=== PATIENT | male | born 1990 | race Caucasian/White ===

== ENCOUNTER 2016-07-10 11:14 | Inpatient (IN) | payer OTHER ==
[~2016-07-10] VITALS: Ht 177.8 cm; Wt 87.5 kg
--- NOTE | 2016-07-10 11:21 | NUR ---
PT BIBA S/P BEING FOUND OUTSIDE GARDENING NAKED. PT ARRIVES TO ED ALERT, STATES THAT HE SMOKED A BLUNT THIS AM, AND HAD SOME ALCOHOL LAST NIGHT. STATES THAT HE WAS OUTSIDE RECYCLING FOR THE EARTH. PT NOT MAKING ANY SENSE WITH ANSWERS. STATES WE ARE ALL INTELLECUAL BEINGS AND PART OF THE EARTH. PT COOPERATIVE WITH EVERYTHING. PAPERED BY .
[2016-07-10 11:55] LABS: ABSOLUTE BASOPHIL COUNT 0 /CUMM (0.0-0.2); ABSOLUTE EOSINOPHIL COUNT 0.1 /CUMM (0.0-0.7); ABSOLUTE GRANULOCYTE CT 5.7 /CUMM (1.4-6.5); ABSOLUTE LYMPH COUNT 1.6 /CUMM (1.2-3.4); ABSOLUTE MONOCYTE COUNT 0.7 /CUMM (0.10-0.60); BASOPHIL % 0.6 % (0.0-2.0); EOSINOPHIL % 1.1 % (0-5); HEMATOCRIT 45.7 % (42-52); MEAN CORPUSCULAR HGB 30.8 PG (27.0-31.0); MEAN CORPUSCULAR HGB CONC 34.5 G/DL (33.0-37.0); MEAN CORPUSCULAR VOLUME 89.3 FL (80.0-94.0); MEAN PLATELET VOLUME 7.6 FL (7.4-10.4); PLATELET COUNT 263 /CUMM (130-400); RBC DISTRIBUTION WIDTH 12.8 % (11.5-14.5); RED BLOOD CELL CT 5.11 /CUMM (4.70-6.10); WHITE BLOOD CELL COUNT 8.1 /CUMM (4.8-10.8)
--- NOTE | 2016-07-10 12:27 | NUR ---
FAMILY AT BEDSIDE.
--- NOTE | 2016-07-10 12:29 | ED PSYCHIATRIC COMPLAINT ---
History of Present Illness General Chief Complaint: ETOH/Drug Related Complaint Stated Complaint: BIBA FOUND OUTSIDE NAKED Source: patient, old records, EMS, police Exam Limitations: clinical impression of psychosis Vital Signs & Intake/Output Vital Signs & Intake/Output Vital Signs Date Time Temp Pulse Resp B/P Pulse O2 O2 Flow FiO2 Ox Delivery Rate 07/10 1351 98.0 90 22 184/81 96 Room Air 07/10 1115 99.0 110 22 143/100 99 Room Air Allergies Coded Allergies: UNOBTAINABLE (07/10/16) Reconcile Medications Unable to Obtain Home Medication History Triage Note: PT BIBA S/P BEING FOUND OUTSIDE GARDENING NAKED. PT ARRIVES TO ED ALERT, STATES THAT HE SMOKED A BLUNT THIS AM, AND HAD SOME ALCOHOL LAST NIGHT. STATES THAT HE WAS OUTSIDE RECYCLING FOR THE EARTH. PT NOT MAKING ANY SENSE WITH ANSWERS. STATES WE ARE ALL INTELLECUAL BEINGS AND PART OF THE EARTH. PT COOPERATIVE WITH EVERYTHING. PAPERED BY PD. Triage Nurses Notes Reviewed? yes HPI: Patient presents for evaluation of public nudity. Patient was brought to the emergency department on a police request for evaluation. Patient himself is unable to provide substantial history and I suspect he is a schizophrenic. He states that he had a moment of clarity and that he is one with the Bible. He states that his Shahkras have aligned. He has no specific complaints at this point. Past History Travel History Traveled to [place] past 21 day No Medical History Any Pertinent Medical History? see below for history Surgical History Surgical History: non-contributory Psychosocial History What is your primary language Arabic Tobacco Use: Cognitive Impairment Family History Hx Contributory? No Review of Systems Review of Systems Constitutional: Reports: no symptoms. EENTM: Reports: no symptoms. Respiratory: Reports: no symptoms. Cardiovascular: Reports: no symptoms. GI: Reports: no symptoms. Genitourinary: Reports: no symptoms. Musculoskeletal: Reports: no symptoms. Skin: Reports: no symptoms. Neurological/Psychological: Reports: see HPI. Hematologic/Endocrine: Reports: no symptoms. Immunologic/Allergic: Reports: no symptoms. All Other Systems: Reviewed and Negative Physical Exam Physical Exam General Appearance: see below Neurological/Psychiatric: see below Comments: General: Alert, calm, cooperative Head: Normocephalic, atraumatic Eyes: Normal inspection, no nystagmus, EOMI Ears: Normal inspection Nose: Normal inspection Throat: Moist mucosa Neck: Supple, no goiter Heart: Regular rate and rhythm, no murmurs rubs or gallops Lungs: Clear to auscultation bilaterally with good air entry Abdomen: Soft nontender nondistended, normal bowel sounds Chest: Nontender Extremities: Normal range of motion grossly, no tremors present, no cyanosis clubbing or edema of the upper extremities Neurologic: cranial nerves II through XII grossly intact, speech clear, gait normal Psychiatric: No apparent delusions or hallucinations, no pressured speech or thought blocking SAD PERSONS Done? deferred to crisis Progress Differential Diagnosis: schizophrenia Plan of Care: Orders Procedure Date/time Status Admit to inpatient psych 07/10 1642 Active ED CRISIS PSYCH CONSULT 07/10 1229 Active URINE DRUG SCREEN FOR ER ONLY 07/10 113 Complete URINALYSIS 07/10 113 Complete ETHANOL 07/10 113 Complete COMPREHENSIVE METABOLIC PANEL 07/10 113 Complete CBC WITHOUT DIFFERENTIAL 07/10 113 Complete Laboratory Tests 07/10/16 1432: Urine Opiates Screen < 100.00, Methadone Screen < 40, Barbiturate Screen < 60, Ur Phencyclidine Scrn < 6.00, Amphetamines Screen < 100, U Benzodiazepines Scrn < 85, Urine Cocaine Screen < 50, Urine Cannabis Screen > 80.00 H, Urinalysis LIGHT H, Urine Color YEL, Urine Clarity CLEAR, Urine pH 7.0, Ur Specific [place] 1.020, Urine Protein 30 H, Urine Ketones TRACE H, Urine Nitrite NEG, Urine Bilirubin NEG, Urine Urobilinogen 0.2, Ur Leukocyte Esterase NEG, Ur Microscopic SEDIMENT EXAMINED, Urine WBC 1-3 H, Urine Bacteria MOD H, Urine Hemoglobin NEG, Urine Glucose NEG 07/10/16 1115: Anion Gap 14, Estimated GFR > 60, BUN/Creatinine Ratio 13.8, Glucose 100 H, Calcium 10.1, Total Bilirubin 0.6, AST 32, ALT 33, Alkaline Phosphatase 61, Total Protein 7.4, Albumin 5.0, Globulin 2.4, Albumin/Globulin Ratio 2.1, CBC w Diff NO MAN DIFF REQ, RBC 5.11, MCV 89.3, MCH 30.8, RDW 12.8, MPV 7.6, Gran % 70.0, Lymphocytes % 19.6 L, Monocytes % 8.7, Eosinophils % 1.1, Basophils % 0.6 , Absolute Granulocytes 5.7, Absolute Lymphocytes 1.6, Absolute Monocytes 0.7 H , Absolute Eosinophils 0.1, Absolute Basophils 0, PUBS MCHC 34.5, Serum Alcohol < 10.0 Comments: Patient's clinical presentation is consistent with grandiosity secondary to schizophrenia. Departure Departure Disposition: STILL A PATIENT Condition: Stable Clinical Impression Primary Impression: Schizophrenia, unspecified Qualifiers: Schizophrenia type: unspecified Qualified Code: F20.9 - Schizophrenia, unspecified Referrals: RADHA MARY MD Departure Forms: Customer Survey General Discharge Information Prescriptions: Current Visit Scripts Unable to Obtain Home Medication History Psych Admission Note Psychiatric Admission: I have seen and evaluated EARL ESCOBAR JR. I have also reviewed all the pertinent lab results and diagnostic results. EARL ESCOBAR JR will be admitted to our inpatient Psychiatric unit for treatment and care.
--- NOTE | 2016-07-10 14:25 | NUR ---
Crisis wating on lab work.
--- NOTE | 2016-07-10 14:32 | ED PSY CRISIS COLLATERAL NOTE ---
Collateral Note Collateral Note Family/Inform/V[place]te Contacts: Elizabeth (mom) face to face: Mom reported "it has been hell for the past 3 weeks." She reports the pt has been delusional and having hallucinations (latter-day ideations). She said pt refuses to seek treatment and get help. Pt has no hx of treatment for MH/SA. She said pt smokes a lot of cannabis and suspect cocaine use per the sister's report. Pt talks about the matrix and how god will provide for them. Pt lives at home with his parents, 1 sister Spring Ahuja ( age 33) lives on her own and is a big support of her brother. Mom said the pt talked about suicide but had no plan. The pt's father just recently went back to work at a nuclear plant but does not think the job will last. The family has financial issues/stressors. Mom reported the pt had a big break up with a girl a year ago. Pt graduated [employer] school and has no motivation to get a job. Mom reports a hx of mental illness of bipolar and schizophrenia on the maternal side. Mom does not feel the pt is safe and does not feel safe taking him home- she would like him to be admitted for stabilization and safety. Mom is aware Crisis is waiting on the pt to be medically cleared for evaluation.
--- NOTE | 2016-07-10 15:35 | NUR ---
SISTER AT NURSING STATION STATING "I WANT TO MAKE SURE HE'S NOT ON DRUGS. HE SAYS HE ISN'T." INFORMED THAT RESULTS OF DRUG TEST ARE CONFIDENTIAL.
--- NOTE | 2016-07-10 15:36 | ED PSYCH CRISIS CONSULTATION ---
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 Pt was outside gardening naked, picking weeds, talking about the matrix and could not answer basic demographic questions at the time. Pt presents as nonsensical and could not give a coherent story why he was naked. He stated "it was meant to be and he needed to give back to the earth." He denies SI/HI at present but notes a hx of having thoughts in middle school but could not articulate why. Pt thoughts are disorganized and reported he "felt like he was home being here at the hospital". Pt is nonsensical, paranoid toward people outside of the hospital, delusional and reports AVH at present. He said he thinks music speaks to him directly and he sees things others can't. Pt UTOX was positive for cannabis and urinalysis positive for UTI. He has no hx of MH/SA treatment and is on no medications. He stated he did not need to be medicated. Pt is currently unemployed and denies graduating high school. He stated he did not need to finish high school as God will provide for him. " I am busy just feeling alive." Per pt , he had a grand mal seizure in the 5th grade due to " being too fast." Pt reports hx of using cannabis daily, using cocaine at age 21 ( last use 3 mos ago) and drinking alcohol occasionally. He has no hx of IP stays with . Pt is agreeable to inpatient admission. Elizabeth (mom) face to face: Mom reported "it has been hell for the past 3 weeks." She reports the pt has been delusional and having hallucinations (jain ideations). She said pt refuses to seek treatment and get help. Pt has no hx of treatment for MH/SA. She said pt smokes a lot of cannabis and suspect cocaine use per the sister's report. Pt talks about the matrix and how god will provide for them. Pt lives at home with his parents, 1 sister Spring Ahuja ( age 33) lives on her own and is a big support of her brother. Mom said the pt talked about suicide but had no plan. The pt's father just recently went back to work at a nuclear plant but does not think the job will last. The family has financial issues/stressors. Mom reported the pt had a big break up with a girl a year ago. Pt graduated [employer] school and has no motivation to get a job. Mom reports a hx of mental illness of bipolar and schizophrenia on the maternal side. Mom does not feel the pt is safe and does not feel safe taking him home- she would like him to be admitted for stabilization and safety. Mom is aware Crisis is waiting on the pt to be medically cleared for evaluation Patient's Address: [address] [place] [address] Other Phone Number: Who Do You Live With? Mother Family/Informants Interviewed: Elizabeth- mother Allergies - Coded Allergies: UNOBTAINABLE (07/10/16) Current Medications - Unable to Obtain Home Medication History Laboratory Results: Laboratory Tests 07/10/16 1432: Urine Opiates Screen < 100.00, Methadone Screen < 40, Barbiturate Screen < 60, Ur Phencyclidine Scrn < 6.00, Amphetamines Screen < 100, U Benzodiazepines Scrn < 85, Urine Cocaine Screen < 50, Urine Cannabis Screen > 80.00 H, Urinalysis LIGHT H, Urine Color YEL, Urine Clarity CLEAR, Urine pH 7.0, Ur Specific [place] 1.020, Urine Protein 30 H, Urine Ketones TRACE H, Urine Nitrite NEG, Urine Bilirubin NEG, Urine Urobilinogen 0.2, Ur Leukocyte Esterase NEG, Ur Microscopic SEDIMENT EXAMINED, Urine WBC 1-3 H, Urine Bacteria MOD H, Urine Hemoglobin NEG, Urine Glucose NEG 07/10/16 1115: Anion Gap 14, Estimated GFR > 60, BUN/Creatinine Ratio 13.8, Glucose 100 H, Calcium 10.1, Total Bilirubin 0.6, AST 32, ALT 33, Alkaline Phosphatase 61, Total Protein 7.4, Albumin 5.0, Globulin 2.4, Albumin/Globulin Ratio 2.1, CBC w Diff NO MAN DIFF REQ, RBC 5.11, MCV 89.3, MCH 30.8, RDW 12.8, MPV 7.6, Gran % 70.0, Lymphocytes % 19.6 L, Monocytes % 8.7, Eosinophils % 1.1, Basophils % 0.6 , Absolute Granulocytes 5.7, Absolute Lymphocytes 1.6, Absolute Monocytes 0.7 H , Absolute Eosinophils 0.1, Absolute Basophils 0, PUBS MCHC 34.5, Serum Alcohol < 10.0 Past History Past Surgical History Surgical History: non-contributory Psychosocial History Strengths/Capabilities: Pt is agreeable to tx for mood stabilization and safety. Physical Limitations (Interventions): none Psychiatric Treatment History Psych Treatment Psychiatric Treatment No Inpatient Treatment No Outpatient Treatment No Diagnosis by History: no hx Substance Use/Abuse History Drug Use/Abuse Substances Used/Abused Yes Substance Used/Abused Marijuana First Use 15 yo Last Used last night How much used/taken 1 blunt with a friend How often daily For how long can't recall Route of use smoke Substance Abuse Treatment Substance Abuse Treatment Past Substance Abuse [place] No Inpatient Treatment No Outpatient Treatment No Comments: Pt discloses smoking cannabis regularly and trying cocaine in the past. Current Mental Status Mental Status Orientation: Confused Affect: Labile Speech: Hyper-verbal Neuro-vegetative: WNL Appearance Appearance- Dress/Hygiene: Pt is dressed in [facility] gown, hygiene fair. Behaviors Thought Process: Disorganized, Irrational, Tangential Thought Content: Auditory Hallucinations, Delusions, Paranoid, Presybeterian, Visual Hallucinations Memory: Impaired Insight: Poor SI/HI Risk Assessment Past Suicidal Ideation/Attempts Yes Current Suicidal Ideation/Att No Past Homicidal Ideation/Att: No Current Homicidal Ideation/Attempts No Degree of Intent: Thoughts/No Intent Gravely Disabled: Lack of Insight Risk Factors: age (under 24/over 65), substance abuse, poor impulse control, male Lethality Ratin PTSD Checklist PTSD Done? pt unable to participate ED Management Sitter: Yes Restraints: No DSM5/PS Stressors/Medical Prob Diagnosis' (DSM 5, Stressors, Medical): F29 Unspecified schizophrenia spectrum and other psychotic d/o F12.20 cannabis use d/o, severe medical: per pt, hx of seizure psychosocial: unemployed, education, financial issues, problems with primary supports Current GAF: 25 Departure Disposition Psych Medical Clearance Date: 07/10/16 Medically Cleared at: 1515 Time Started: 1515 Time Ended: 1615 Psychiatrist Consulted: Boy FARLEY,Jamarcus Date Disposition Established: 07/10/16 Time Disposition Established: 161 Plan for Disposition - Modality: Inpatient Psychiatry Facility: [facility] Rationale for Disposition: Pt presents with AVH and paranoid delusions. He cannot give coherent story of why he was outside nude. Pt's statements are nonsensical and he cannot give basic demographic information. Pt is agreeable to voluntary admission for mood stabilzation and safety. Type of IP Admission: Voluntary Referrals PATIENT HAS NO PRIMARY CARE DR (PCP/Family)
--- NOTE | 2016-07-10 16:24 | NUR ---
PT RESTING COMFORTABLY. OFFERED NO COMPLAINTS. DINNER ORDERED.
--- NOTE | 2016-07-10 16:43 | IP CRISIS DIAG ASSESS PSYCH ---
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 Pt was outside gardening naked, picking weeds, talking about the matrix and could not answer basic demographic questions at the time. Pt presents as nonsensical and could not give a coherent story why he was naked. He stated "it was meant to be and he needed to give back to the earth." He denies SI/HI at present but notes a hx of having thoughts in middle school but could not articulate why. Pt thoughts are disorganized and reported he "felt like he was home being here at the hospital". Pt is nonsensical, paranoid toward people outside of the hospital, delusional and reports AVH at present. He said he thinks music speaks to him directly and he sees things others can't. Pt UTOX was positive for cannabis and urinalysis positive for UTI. He has no hx of MH/SA treatment and is on no medications. He stated he did not need to be medicated. Pt is currently unemployed and denies graduating high school. He stated he did not need to finish high school as God will provide for him. " I am busy just feeling alive." Per pt , he had a grand mal seizure in the 5th grade due to " being too fast." Pt reports hx of using cannabis daily, using cocaine at age 21 ( last use 3 mos ago) and drinking alcohol occasionally. He has no hx of IP stays with . Pt is agreeable to inpatient admission. Elizabeth (mom) face to face: Mom reported "it has been hell for the past 3 weeks." She reports the pt has been delusional and having hallucinations (confucianism ideations). She said pt refuses to seek treatment and get help. Pt has no hx of treatment for MH/SA. She said pt smokes a lot of cannabis and suspect cocaine use per the sister's report. Pt talks about the matrix and how god will provide for them. Pt lives at home with his parents, 1 sister Spring Ahuja ( age 33) lives on her own and is a big support of her brother. Mom said the pt talked about suicide but had no plan. The pt's father just recently went back to work at a nuclear plant but does not think the job will last. The family has financial issues/stressors. Mom reported the pt had a big break up with a girl a year ago. Pt graduated [employer] school and has no motivation to get a job. Mom reports a hx of mental illness of bipolar and schizophrenia on the maternal side. Mom does not feel the pt is safe and does not feel safe taking him home- she would like him to be admitted for stabilization and safety. Mom is aware Crisis is waiting on the pt to be medically cleared for evaluation. Spring ( sister face to face): Pt has been very manic the past few weeks and agrees with the inpatient admission. Spring is hoping this was only drug related. Patient's Address: [address] [place] [address] Other Phone Number: Who Do You Live With? Mother Feel Safe Where You Live? No Marital Status: single Do You Have Children? No Primary Language? Prydeinig Language(s) Spoken At Home: [place] Family/Informants Interviewed: Elizabeth- mother Allergies - Coded Allergies: UNOBTAINABLE (07/10/16) Current Medications - Unable to Obtain Home Medication History Past History Abuse/Trauma History Trauma History/Current Trauma: Denies Legal History Current Legal Status: none Have you ever been arrested? No Number of Arrests: [address] Dates: Denies Psychosocial History Strengths/Capabilities: Pt is agreeable to tx for mood stabilization and safety. Physical Limitations (Interventions): none Psychiatric Treatment History Psych Treatment Psychiatric Treatment No Inpatient Treatment No Outpatient Treatment No Diagnosis by History: no hx Risk Factors: age (under 24/over 65), substance abuse, poor impulse control, male Substance Use/Abuse History Drug Use/Abuse minimum 12mo Hx Substances Used/Abused Yes Substance Used/Abused Marijuana First Use 15 yo Last Used last night How much used/taken 1 blunt with a friend How often daily For how long can't recall Route of use smoke Substance Abuse Treatment Substance Abuse Treatment Past Substance Abuse TX No Inpatient Treatment No Outpatient Treatment No Sexual History Sexually Active No # of partners 0 Sexual Orientation Heterosexual Use of Protection No Sexual Concerns: No Education History Highest Level of Education: did not complete HS, Pt completed [employer] school Preferred Learning Style: All of the above Current Mental Status Mental Status Orientation: Confused Affect: Labile, Manic Speech: Hyper-verbal Neuro-vegetative: WNL Appearance Appearance- Dress/Hygiene: Pt is dressed in [facility] gown, hygiene fair. Behaviors Thought Process: Disorganized, Irrational, Tangential Thought Content: Auditory Hallucinations, Delusions, Paranoid, Judaism, Visual Hallucinations Memory: Impaired Insight: Poor SI/HI Risk Assessment - Minimum 6mo History- Past Suicidal Ideation/Attempts Yes Current Suicidal Ideation/Att No Past Homicidal Ideation/Att: No Current Homicidal Ideation/Attempts No Degree of Intent: Thoughts/No Intent Gravely Disabled: Lack of Insight Risk Factors: age (under 24/over 65), substance abuse, poor impulse control, male Lethality Ratin Needs/Init TX Plan/Goals: Mood stabilization and safety, group and indiviudal therapy, psychoeducation, family meeting, medication evaluation and coping skills. AUDIT-C Questionnaire: AUDIT-C Questionnaire: Response Value ETOH use in the past year 2-4 times/week 3 # drinks typical/day 1 or 2 0 6 or > drinks per occasion Monthly 2 Total 5 DSM5/PS Stressors/Medical Prob Diagnosis' (DSM 5, Stressors, Medical): F29 Unspecified schizophrenia spectrum and other psychotic d/o F12.20 cannabis use d/o, severe medical: per pt, hx of seizure psychosocial: unemployed, education, financial issues, problems with primary supports Current GAF: 25
--- NOTE | 2016-07-10 17:22 | NUR ---
PT MEDICATED WITH ZYPREXA PER EMAR. PT CALM, PLEASANT, INTIALLY REFUSED STATING "THAT'S GONNA MAKE ME WORSE, ANTIBIOTICS AND ALL THAT, THEY POISON YOUR MIND. I'D RATHER NOT TAKE IT." PT THEN STATES "UNLESS I NEED IT." INFORMED THE DOCTOR WOULD LIKE HIM TO TAKE IT AND PT COMPLIED.
--- NOTE | 2016-07-10 17:26 | NUR ---
REPORT GIVEN TO ED, WILL BE TRANSFERED TO [facility].
--- NOTE | 2016-07-10 18:45 | NUR ---
Admitted from ED on voluntary for unspecified schizophrenia, +ah/?vh. was found at home in the yard engaging in naked gardening. States is at one with the with the world and spirit of the earth. When asked if he had any special abilities he stated he can see the future and what will happen. Verbalized some paronoid thinking especially as it relates to meds. Denied any past or present thoughts of suicidal thinking. denies being on any medications or having any medical issues.
[2016-07-10 19:22] VITALS: BP 153/76
[2016-07-10 20:14] VITALS: BP 140/84
--- NOTE | 2016-07-10 21:41 | NUR ---
PATIENT ISOLATIVE IN ROOM ALL SHIFT; DID NOT ATTEND GROUPS; COMPLIANT WITH MEDICATIONS; CALM, COOPERATIVE WITH STAFF; CURRENT BLOOD PRESSURE 128/55, PULSE 50.
--- NOTE | 2016-07-10 21:47 | NUR ---
PT HAS BEEN ISOLATIVE IN ROOM FOR MOST OF SHIFT. PT CAME DOWN AFTER DINNER AND WENT TO SLEEP AFTER THE ADMISSION. PT IS EASILY AWAKEN FOR VITALS AND MEDS. PT DID NOT ATTEND WRAP UP. PT DENIES SI THOUGHTS.
[2016-07-10 21:48] VITALS: BP 128/55
--- NOTE | 2016-07-11 05:55 | NUR ---
PATIENT SLEPT ALL NIGHT.
[2016-07-11 08:08] VITALS: BP 149/86
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
[2016-07-11 12:24] VITALS: BP 139/73
--- NOTE | 2016-07-11 14:14 | NUR ---
PT HAS BEEN VISIBLE IN THE MILIEU THROUGHOUT THE DAY. HIS GOAL WAS TO BE HUMBLE, AND ADJUST TO THE MILIEU. IN THE MILIEU PT HAS BEEN GOING TO GROUPS, AND INTERACTING WITH PEERS. HE SEEMS TO BE ADJUSTING FINE ON THE UNIT, AND DENIES THOUGHTS OF HURTING HIMSELF WHEN ASKED.
--- NOTE | 2016-07-11 14:43 | History & Physical ---
General Information and HPI History of Present Illness: This young male is admitted for the first time to the hospital because he was brought by police for strange and abnormal behavior. he is not sure how the whole thing happened but claims it was meant to be like that. He denies any specific physical problems and claims he is in good health generally. His past history is essentially negative for any ongoing medical illnesses or any major medical problems in the past he works in [employer] business and admits to smoking marijuana couple of times a day and claims he is trying to cut it down. Rarely he smokes any cigarettes on the weekend or so. He denies any other illegal drug abuse. He claims both parents are alive and his mother has some medical problems due to smoking. His single unmarried and no children. He has one sister who is in good health. 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 Home Review of Systems Review of Systems Constitutional: Denies: no symptoms. EENTM: Denies: no symptoms. Cardiovascular: Denies: no symptoms. Respiratory: Denies: no symptoms. GI: Denies: no symptoms. Genitourinary: Denies: no symptoms. Musculoskeletal: Denies: no symptoms. Skin: Denies: no symptoms. Neurological/Psychological: Reports: see HPI, confusion. Hematologic/Endocrine: Denies: no symptoms. Immunologic/Allergic: Denies: no symptoms. All Other Systems: Reviewed and Negative Exam & Diagnostic Data Last 24 Hrs of Vital Signs/I&O Vital Signs Date Time Temp Pulse Resp B/P Pulse O2 O2 Flow FiO2 Ox Delivery Rate 07/11 1224 85 139/73 07/11 0808 96.8 73 149/86 07/10 2148 50 18 128/55 07/10 2013 62 140/84 07/10 1922 98.0 84 153/76 07/10 1725 97.8 89 20 168/88 97 Room Air Intake & Output 07/11 1600 07/11 0800 07/11 0000 Intake Total Output Total Balance Patient 193 lb Weight Physical Exam General Appearance Alert, Oriented X3, Cooperative, No Acute Distress Skin No Rashes, No Breakdown, No Significant Lesion HEENT Atraumatic, PERRLA, EOMI, Mucous Membr. moist/pink Neck Supple, No JVD, No thryomegaly, +2 Carotid Pulse wo Bruit Lymphatic Cervical nl Cardiovascular Regular Rate, Normal S1, Normal S2, No Murmurs, Gallops, Rubs Lungs Clear to Auscultation, Normal Air Movement Abdomen Soft, No Tenderness, No Hepatospenomegaly, No Masses Neurological Exam Findings: Normal Gait, Normal Speech, Strength at 5/5 X4 Ext, Normal Tone, Sensation Intact, Cranial Nerves 3-12 NL Cranial Nerves II through XII: Within normal limits and intact Extremities No Clubbing, No Cyanosis, No Edema, No Tenderness/Swelling Assessment/Plan Assessment: This young male is admitted for bizarre and psychotic behavior and was brought in by police. There is no clear documented previous history of any psychiatric illness and no outpatient treatment. From a from medical standpoint he seems stable without any acute medical problem. His lab work including a CBC electrolytes liver functions thyroid functions are all normal and his urine toxicology is only positive for marijuana that he admits to using. There is no need for any medical workup or treatment at this time and he will be seen as needed. His initial elevated blood pressure was just from anxiety and agitation and it has come back to normal and does not require any treatment. As Ranked By This Provider Problem List: 1. Schizophrenia, unspecified Qualifiers Schizophrenia type: unspecified Qualified Code: F20.9 - Schizophrenia, unspecified Miscellaneous Miscellaneous Documentation Attending Case Discussed With: ARSLAN FARLEY,SATYA Lopez Primary Care Physician: PATIENT HAS NO PRIMARY CARE DR Patient sees these Specialists none Level of Patient Care: RICKIE Farrell MD Review Statement Attending Statement Attending MD Statement: examined this patient, reviewed EMR data (avail), discussed with nursing Attending Assessment/Plan: This young male is admitted for schizophrenia probably new onset. He is fairly stable from medical standpoint without any acute medical problems. He does not require any medical treatment or workup and will be seen only as needed.
[2016-07-11 15:39] VITALS: BP 161/74
--- NOTE | 2016-07-11 17:21 | NUR ---
PT'S BOSS - TENZIN ELLIS, APPROACHED DESK AFTER VISIT WITH EAR[facility]. REPORTED THAT PT STILL IS CONFUSED AND IS NOT ACTING LIKE HIMSELF. IS ALSO A FRIEND OF PT AND STATED THAT PT CONFIDES IN HIM. LEFT PHONE NUMBER [phone] IF BASILIO OR WOULD LIKE INPUT
[2016-07-11 19:32] VITALS: BP 178/91
--- NOTE | 2016-07-11 21:24 | NUR ---
PT IS CALM, COOPERATIVE WITH STAFF AND PEERS, AND COMPLIANT WITH UNIT RULES. PT IS OFTEN IN MILIEU, INTERACTING WELL WITH STAFF AND PEERS. MOOD IS STABLE, AFFECT APPEARS EUTHYMIC TO FULL RANGE, COMMUNICATION IS ORGANIZED AND APPEARS NORMAL IN ALL RESPECTS, AND APPETITE IS NORMAL. PT DENIES SI AT THIS TIME.
--- NOTE | 2016-07-12 07:23 | NUR ---
PT APPEARED TO SLEEP WELL.
[2016-07-12 08:04] VITALS: BP 172/80
[2016-07-12 12:34] VITALS: BP 172/84
--- NOTE | 2016-07-12 13:40 | NUR ---
PT IS COMPLIANT AND COOPERATIVE. MOOD IS STABLE WITH A FULL RANGE OF AFFECT- PT IS BRIGHT AT TIMES. PT DENIES SI AT THIS TIME, NO COMPLAINTS OFFERED. PT IS PRESENT ON THE UNIT AND INTERACTING WELL WITH PEERS AND STAFF. NO ACTIVE PSYCHOSIS NOTED. PT IS ATTENDING GROUPS. VITALS ARE STABLE, APPETITE IS GOOD.
--- NOTE | 2016-07-12 15:56 | CP SOUTH PROGRESS NOTE PSYCH ---
See Addendum Psych (Inpt) Progress Note Progress Note Include the following elements, when applicable: Involvement in the active treatment of the patient with behavioral observations of the patient and the patient's response to the treatment. Review of the ongoing treatment process in the context of the treatment plan. Indication of how multi-disciplinary staff members are carrying out the treatment plan. Plans for future interventions and recommendations for revision of the treatment plan. Liaison with other physicians/providers. Progress Note: [I discussed this patient's progress to date, current mental status, treatment process in the context of the treatment plan, and discharge planning with staff/ team in the daily morning inpatient team meeting. I also met with the patient myself in individual session.] S: "Can I go home tomorrow?" O: Current Medications Sig/Patricia Start time Last Medication Dose Route Stop Time Status Admin Acetaminophen 650 MG Q6P PRN 07/11 1645 AC PO Gabapentin 300 MG Q8P PRN 07/11 1645 AC PO Olanzapine 10 MG 0 07/13 2200 AC PO Olanzapine 5 MG 0800 07/13 0800 AC PO Olanzapine 5 MG 0 07/12 2200 AC PO 07/12 2201 Olanzapine 5 MG 0800,1400,2200 07/10 2200 DC 07/12 PO 1303 Olanzapine 2.5 MG Q4P PRN 07/10 1800 AC PO Vital Signs Date Time Temp Pulse Resp B/P Pulse O2 O2 Flow FiO2 Ox Delivery Rate 07/12 1234 80 172/84 07/12 0804 97.9 87 172/80 07/11 1932 98.5 71 178/91 A: Chart, progress notes, labs, VS and medication list were reviewed. BP remains hypertensive. HR within normal limits. Patient is asymptomatic. Will continue to monitor. Commercial Singer Dr. Chacon also made aware of BP trends by nursing staff. Met with patient 1:1 today. He reports tolerating Zyprexa well and denied untoward medication effects. Reported since starting it he has had an "easier time focusing." Reported decreased racing thoughts. Denied paranoia, AH, VH. There was no evidence of overt hyperreligious beliefs. Speech was more normal in rate, tone and volume, non-pressured. Mood was "pretty good, I'm not depressed. " Affect was full-range, non-labile. Reported sleeping well last night. Appetite stable. Denied acute depressive symptoms. Reported anxiety regarding staying in hospital over the weekend as he feels "confined here" and is use to playing sports/working out and being very active at home. Patient was encouraged to do stationary exercise in room (i.e. push-ups, jumping jacks, sit-ups). He was additionally offered to sign a termination of voluntary form, this process was reviewed at length with the patient. He did not sign at this time but was informed that if he changed his mind to contact nursing staff to sign. He denied passive and active SI, plans and intent. Denied homicidal ideation. Thought process appeared more organized than during yesterday's encounter. He was able to answer questions appropriately. Thought content was more coherent but occasionally odd. Cognition was grossly intact. Met with the patient, his mother, and Lupe Markham LCSW later today for a family meeting. The patient's treatment progress to date, medication regimen, level of safety and discharge planning were reviewed and discussed. During meeting, the patient's mother appeared to minimize somewhat the seriousness of the events leading up to present hospitalization. Patient's mother appeared somewhat preoccupied on the patient's past achievements, which were acknowledged by his treatment team and identified as strengths, rather than on his symptoms of psychosis/impulsive and risky behavior leading to admission. Mother felt patient would likely benefit most from traditional outpatient treatment. Mother and patient appeared moderately enmeshed and allied in comparison to their described relationships with sister/daughter and father/. Lupe and Zaina explained to the patient and his mother that Dual IOP would be our treatment recommendation as it would provide a step down from inpatient care for continued monitoring of symptoms and medication given that the onset of these symptoms were new. The patient was initially resistent, however became more open to idea after hearing there was an evening dual IOP track which would offer him the ability to work during the daytime. He seemed more open to the idea of remaining on prescribed Zyprexa, reported recent benefits of "sleeping better" and feeling "more focused" with medication. By the end of meeting, the patient and his mother reported they were in favor of discharge recommendation for dual IOP. The patient's mother did not express any safety concerns in relation to the patient or discharge plan. P: 1. Continue monitoring patient on unit for safety, mood and psychosis. 2. Continue Zyprexa 5mg TID for now, last dose tonight. Will change dosing for simplicity to Zyprexa 5mg QAM and 10mg QHS starting tomorrow night. 3. Dispo planning per primary team.
--- NOTE | 2016-07-12 16:36 | NUR ---
PT SIGNED A 3-DAY PAPER TODAY @ 8861, HORTENCIA ARELLANO APRN AWARE.
[2016-07-12 16:45] VITALS: BP 176/78
--- NOTE | 2016-07-12 17:42 | SOCIAL WORKER PROG NOTE PSYCH ---
Social Work Progress Note Progress Note Discussed Amauri in team meeting today with Garima Gibbs APRN, progress in his treatment so far. Garima and I met with Amauri today in a family meeting with his Mother, Elizabeth Eric. Ms. Eric emphasized all of Amauri' strengths - how althletic he is (was in High School), and intelligent as well as being in great shape physically. Several times, Garima and I had to redirect his Mother (and Amauri) to discuss precipitant to coming to the ED (his bizarre behaviors and substance use). His Mother finally scknowledged how Amauri has been smoking "alot" of Cannibis. Amauri stated he is willing to stay clean off Cannibis. Initially, Amauri was recluctant to go to [facility], but agreed to go by end of session. 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 His Mother at one point stated Amauri and her family are a very affectionate and sexual family, she also asked about sexual side effects of medications - Amauri didn't seem to flinch when she asked about this. Family history seems significant for Bipolar - his sister is Bipolar (non0-compiant with medications), also his Mother is on an anti-depressant as well. His Uncle is Bipolar and apparently also on Zyrexa, per parent report. Amauri signed a 3-day paper today, was angry that recommendation is for him to stay over the weekend. His 3-day will on . 07/17. Amauri still needs to call [employer] to APPLY for his insurance. He was reminded to do this and should do this on 07/12/16.
--- NOTE | 2016-07-12 17:57 | SOCIAL WORKER TX PLAN PSYCH ---
Treatment Plan - Please Document: - Evidence that there is ongoing collaboration between - the patient and the interdisciplinary team, - including the patient's active participation and - responsibility for engaging in the treatment regimen, - and that the treatment plan is individualized and - relevant to the patient's conditions. - Treatment plan should reflect documentation indicating - that all active therapeutic efforts are included. Strengths/Capabilities: Pt is agreeable to tx for mood stabilization and safety. Physical Limitations (Interventions): none Problem/Goals #1 Problem #1: psychosis Goal (Short Term): Eliminate psychosis, be safe on unit. 15min checks for safety, comply with medications regime. Goal (Fci): Maintain stable mood, engage in after-care treatment, comply with medications. Interventions: Provide 1:1 therapy with BASILIO, visits daily, and attend all groups. Modalities: Reality-testing, and ID modalities Problem/Goals #2 Problem #2: Cannibis Use Goal (Short Term): Idenitify 1-2 triggers to using Cannibis, verbalize pros and ocns to drug use. Engage in all SA groups. Goal (Fci): Maintain abstinence. Interventions: ID and substance abuse groups and education, relapse prevention. Modalities: ID and substance abuse education attend AA on unit 2x per week. DSM5/PS Stressors/Medical Prob Diagnosis' (DSM 5, Stressors, Medical): F29 Unspecified schizophrenia spectrum and other psychotic d/o F12.20 cannabis use d/o, severe medical: per pt, hx of seizure psychosocial: unemployed, education, financial issues, problems with primary supports Current GAF: 25 Treatment Team - Responsibilities of members of the treatment team include: - Medication Management- MD or PROOF PRESS OPERATOR - Medication Administration and Monitoring- Nurse - Group Therapy- Occupational Therapist - 1:1 Therapy,Disch Planning,family involvement-Green Chain Off Bearer
[2016-07-12 20:08] VITALS: BP 173/80
--- NOTE | 2016-07-12 20:55 | NUR ---
PT IS VISIBLE ON UNIT, SOCIALIZING WITH PEERS AND STAFF. VERY COOPERATIVE AND COMPLIANT. ATTENDED AA THIS EVENING. NO COMPLAINTS OR SI REPORTED. PT HAS A STABLE MOOD AND FULL RANGE AFFECT.
--- NOTE | 2016-07-13 04:53 | NUR ---
PT APPEARED TO SLEEP WELL.
[2016-07-13 08:05] VITALS: BP 155/73
--- NOTE | 2016-07-13 11:21 | SOCIAL WORKER PROG NOTE PSYCH ---
Social Work Progress Note Progress Note I gave Amauri the phone number for Damián and reminded him to call [phone]. I made an intake appt with [facility] for 07/18/16 at 9:30 at [address] [facility].
[2016-07-13 12:42] VITALS: BP 122/83
--- NOTE | 2016-07-13 13:53 | NUR ---
PT IS COMPLIANT AND COOPERATIVE. MOOD IS STABLE WITH A FULL RANGE AND BRIGHT AFFECT. PT DENIES SI AT THIS TIME, NO COMPLAINTS OFFERED. NO SIGNS OF ACTIVE PSYCHOSIS NOTED. PT IS PRESENT ON THE UNIT AND INTERACTING WELL WITH PEERS AND STAFF. PT IS ATTENDING GROUPS. VITALS ARE STABLE, APPETITE IS GOOD.
--- NOTE | 2016-07-13 15:46 | CP SOUTH PROGRESS NOTE PSYCH ---
Psych (Inpt) Progress Note Progress Note Include the following elements, when applicable: Involvement in the active treatment of the patient with behavioral observations of the patient and the patient's response to the treatment. Review of the ongoing treatment process in the context of the treatment plan. Indication of how multi-disciplinary staff members are carrying out the treatment plan. Plans for future interventions and recommendations for revision of the treatment plan. Liaison with other physicians/providers. Progress Note: [I discussed this patient's progress to date, current mental status, treatment process in the context of the treatment plan, and discharge planning with staff/ team in the daily morning inpatient team meeting. I also met with the patient myself in individual session.] S: "I'm fine, I'm back in my right mind." O: Current Medications Sig/Patricia Start time Last Medication Dose Route Stop Time Status Admin Acetaminophen 650 MG Q6P PRN 07/11 1645 AC PO Gabapentin 300 MG Q8P PRN 07/11 1645 AC PO Olanzapine 10 MG 0 07/13 2200 AC PO Olanzapine 5 MG 0800 07/13 0800 AC 07/13 PO 0757 Olanzapine 5 MG 0 07/12 2200 DC 07/12 PO 07/12 2201 2134 Olanzapine 5 MG 0800,1400,2200 07/10 2200 DC 07/12 PO 1303 Olanzapine 2.5 MG Q4P PRN 07/10 1800 AC PO Vital Signs Date Time Temp Pulse Resp B/P Pulse O2 O2 Flow FiO2 Ox Delivery Rate 07/13 1242 97 122/83 07/13 0805 96.7 86 155/73 07/13 2007 98.4 80 173/80 07/12 1645 83 176/78 A: Chart, progress notes, labs, VS and medication list were reviewed. BP remained mildly hypertensive today. HR wnl. Met with patient 1:1 this afternoon. Mood was appeared euthymic. Affect was somewhat expansive. Speech was loud, normal in rate and tone. Eye contact was appropriate. Behavior remained animated. Reported he felt that family meeting yesterday went well. Remains agreeable to pursue [facility] post-discharge and to remain med adherent. Continus to tolerate medication well and denied untoward medication effects. Reported sleep and appetite were good. Patient showed improved insight into the circumstances leading to hospitalization, reported he hadn't been in his "right mind." Reported trigger was being stressed over recent break-up with girlfriend. Denied passive/active SI, HI, plans and intent. Denied AVH, PI/delusions. No evidence of hyperreligiousity, or overt collins. Remains in good physical and behavioral control. Anxiety: 5/10 (10 being the worst). Depression: 1/ (10 being the worst). Thought process linear, goal-directed. Thought content somewhat odd. Cognition grossly intact. P: 1. Continue monitoring patient on unit for mood, psychosis, and safety. 2. Continue current medication; consider increasing Zyprexa if recurrence of delusions/PI. 3. Termination of Voluntary to on , 07/17/16. Likely discharge then with f/u to Dual IOP.
[2016-07-13 16:04] VITALS: BP 172/80
[2016-07-13 20:01] VITALS: BP 172/86
--- NOTE | 2016-07-13 21:59 | NUR ---
PT IS CALM, COOPERATIVE WITH STAFF AND PEERS, AND COMPLIANT WITH UNIT RULES. PT IS OFTEN IN [place], INTERACTING WELL WITH OTHERS. MOOD IS STABLE, AFFECT IS FULL RANGE, COMMUNICATION IS ORGANIZED AND APPEARS NORMAL IN ALL RESPECTS, AND APPETITE IS NORMAL. PT DENIES SI AT THIS TIME.
--- NOTE | 2016-07-14 06:25 | NUR ---
PATIENT SLEPT ALL NIGHT.
[2016-07-14 08:05] VITALS: BP 140/73
[2016-07-14 12:15] VITALS: BP 150/89
--- NOTE | 2016-07-14 13:22 | NUR ---
PT IS COMPLIANT AND COOPERATIVE WITH UNIT RULES. PT IS OUT IN COMMUNITY INTERACTING WELL WITH STAFF AND PEERS. PT IS ATTENDING GROUPS. PT STATED THIS MORNING HIS GOAL WAS TO MAKE SOME PHONE CALLS TO DEAL WITH HIS INSURANCE PROBLEMS. PT MOOD IS STABLE WITH A FULL RANGE AFFECT. PT DENIES SI THOUGHTS.
--- NOTE | 2016-07-14 13:49 | CP SOUTH PROGRESS NOTE PSYCH ---
Psych (Inpt) Progress Note Progress Note Include the following elements, when applicable: Involvement in the active treatment of the patient with behavioral observations of the patient and the patient's response to the treatment. Review of the ongoing treatment process in the context of the treatment plan. Indication of how multi-disciplinary staff members are carrying out the treatment plan. Plans for future interventions and recommendations for revision of the treatment plan. Liaison with other physicians/providers. Progress Note: Pt in good mood today. Feels as though medication helping with mood stablization. Denies SI or HI. Current Medications Sig/Patricia Start time Last Medication Dose Route Stop Time Status Admin Acetaminophen 650 MG Q6P PRN 07/11 1645 AC PO Gabapentin 300 MG Q8P PRN 07/11 1645 AC PO Olanzapine 10 MG 2200 07/13 2200 AC 07/13 PO 2230 Olanzapine 5 MG 0800 07/13 0800 AC 07/14 PO 0935 Olanzapine 2.5 MG Q4P PRN 07/10 1800 AC PO Vital Signs Date Time Temp Pulse Resp B/P Pulse O2 O2 Flow FiO2 Ox Delivery Rate 07/14 1215 88 150/89 07/14 0805 96.2 86 140/73 07/13 2000 98.1 84 172/86 07/13 1604 84 172/80 MSE Appears as stated age. Cooperative behavior, good, appropriate eye contact. Nl speech and prosody though slightly increase rate No psychomotor retardation or agitation. Mood better Affect bright but not elevated, appropriate, non- liable. Linear and goal directed thought process. Denies SI or HI. Does not appear to be responding to internal stimuli. Denies AVHs, paranoia, or delusions. I/J: limited A/P: Pt with schizophrenia with improved thought process and mood. - Unclear etiology of the elevated BPs. Increased Cr on admission. Will repeat, if still elevated with elevated BPs, concerning for GLADIS or RAH. Will consult medicine. - Continue current regimen
[2016-07-14 16:19] VITALS: BP 174/72
[2016-07-14 19:51] VITALS: BP 160/80
--- NOTE | 2016-07-14 22:16 | NUR ---
PATIENT DOING WELL, OUT IN COMMUNITY, INTERACTING WITH PEERS AND STAFF; HE IS ATTENDING ALL GROUPS WITH GOOD PARTICIPATION; PATIENT APPEARS MORE ORIENTED THAN ON ARRIVAL; HE DENIES S/I, H/I, A/H, AND V/H; BLOOD PRESSURE BEING MONITORED CAREFULLY; LATEST RESULT 160/80; PATIENT APPEARS TENSE DURING BLOOD PRESSURE MEASUREMENT.
--- NOTE | 2016-07-15 06:20 | NUR ---
PATIENT SLEPT ALL NIGHT; PATIENT HAD SLIGHT NAUSEA AFTER BLOOD DRAW ATTEMPT IN AM UNSUCCESSFUL; PATIENT DIRECTED TO DRINK FLUIDS.
[2016-07-15 07:41] VITALS: BP 155/92
--- NOTE | 2016-07-15 09:59 | CP SOUTH PROGRESS NOTE PSYCH ---
Psych (Inpt) Progress Note Progress Note Include the following elements, when applicable: Involvement in the active treatment of the patient with behavioral observations of the patient and the patient's response to the treatment. Review of the ongoing treatment process in the context of the treatment plan. Indication of how multi-disciplinary staff members are carrying out the treatment plan. Plans for future interventions and recommendations for revision of the treatment plan. Liaison with other physicians/providers. Progress Note: Pt notes diarrhea and n/v overnight which he attributes to "detoxing for weed, this is the first time I've not smoked in five years!!" He was amenable to low- dose imodium and zofran PRN. Notes good mood overall even though physcially ill. Spoke at length about "natural lifestyle" and plans for eating well and exercising in the future. Denies SI or HI. Denies AVHs. Current Medications Sig/Patricia Start time Last Medication Dose Route Stop Time Status Admin Acetaminophen 650 MG Q6P PRN 07/11 1645 AC PO Gabapentin 300 MG Q8P PRN 07/11 1645 AC PO Loperamide HCl 2 MG Q6P PRN 07/15 0930 AC PO Olanzapine 10 MG 2200 07/13 2200 AC 07/14 PO 2256 Olanzapine 5 MG 0800 07/13 0800 AC 07/15 PO 0757 Olanzapine 2.5 MG Q4P PRN 07/10 1800 AC PO Ondansetron HCl 4 MG Q8P PRN 07/15 0930 AC PO Laboratory Tests 07/15 0806 Chemistry Sodium (137 - 145 mmol/L) 139 Potassium (3.5 - 5.1 mmol/L) 4.4 Chloride (98 - 107 mmol/L) 100 Carbon Dioxide (22 - 30 mmol/L) 27 Anion Gap (5 - 16) 12 BUN (9 - 20 mg/dL) 20 Creatinine (0.7 - 1.2 mg/dL) 1.0 Estimated GFR (>60 ml/min) > 60 BUN/Creatinine Ratio (7 - 25 %) 20.0 Vital Signs Date Time Temp Pulse Resp B/P Pulse O2 O2 Flow FiO2 Ox Delivery Rate 07/15 0641 97.4 92 155/92 07/14 1950 97.0 81 160/80 07/14 1619 85 174/72 07/14 1215 88 150/89 MSE Appears as stated age. Cooperative behavior, good, appropriate eye contact. Nl speech and prosody though slightly increase rate No psychomotor retardation or agitation. Mood OK just detoxing for the weed Affect slightly elevated, appropriate, non-liable. Linear and goal directed thought process though perseverative around "natural lifestyle." Denies SI or HI. Does not appear to be responding to internal stimuli. Denies AVHs, paranoia, or delusions. I/J: limited A/P: Pt with schizophrenia with improved thought process and mood. - Unclear etiology of the elevated BPs. Increased Cr on admission, now improved to 1.0. Likely elevated 2/2 dehydration. - Added imodium 2mg q6p and zofran 4mg q8p for sx management - Continue current regimen
[2016-07-15 11:40] VITALS: BP 151/79
--- NOTE | 2016-07-15 13:40 | NUR ---
out in community off and on. mood is stable, full range of affect. Conversations still contain earthy overtones, not excessive or delusional. jokingly said something at one point about smoking less weed. did not elaborate. Denied thoughts of self harm when asked.
[2016-07-15 15:40] VITALS: BP 145/73
[2016-07-15 19:13] VITALS: BP 142/78
--- NOTE | 2016-07-15 19:52 | NUR ---
PT IS STABLE WITH BRIGHT, FULL RANGE OF AFFECT, PRESENT WITHIN THE COMMUNITY AND INTERACTING WITH PEERS/STAFF MEMBERS, CURRENTLY VISITING WITH SISTER IN THE KITCHEN. VS ARE STABLE AND DENIES ANY SI/HI TO THIS MHW.
--- NOTE | 2016-07-16 07:18 | NUR ---
PATIENT SLEPT ALL NIGHT.
[2016-07-16 08:03] VITALS: BP 144/78
--- NOTE | 2016-07-16 10:21 | CP SOUTH PROGRESS NOTE PSYCH ---
Psych (Inpt) Progress Note Progress Note Include the following elements, when applicable: Involvement in the active treatment of the patient with behavioral observations of the patient and the patient's response to the treatment. Review of the ongoing treatment process in the context of the treatment plan. Indication of how multi-disciplinary staff members are carrying out the treatment plan. Plans for future interventions and recommendations for revision of the treatment plan. Liaison with other physicians/providers. Progress Note: [I discussed this patient's progress to date, current mental status, treatment process in the context of the treatment plan, and discharge planning with staff/ team in the daily morning inpatient team meeting. I also met with the patient myself in individual session.] S: "I'm doing good, I feel like myself again." O: Current Medications Sig/Patricia Start time Last Medication Dose Route Stop Time Status Admin Acetaminophen 650 MG Q6P PRN 07/11 1645 AC PO Gabapentin 300 MG Q8P PRN 07/11 1645 AC PO Loperamide HCl 2 MG Q6P PRN 07/15 0930 AC PO Olanzapine 10 MG 2200 07/13 2200 AC 07/15 PO 2159 Olanzapine 5 MG 0800 07/13 0800 AC 07/16 PO 0823 Olanzapine 2.5 MG Q4P PRN 07/10 1800 AC PO Ondansetron HCl 4 MG Q8P PRN 07/15 0930 AC 07/15 PO 1001 Vital Signs Date Time Temp Pulse Resp B/P Pulse O2 O2 Flow FiO2 Ox Delivery Rate 07/16 0803 98.0 96 144/78 07/15 1913 98.7 88 142/78 07/15 1540 96 145/73 07/15 1140 82 151/79 A: Chart, progress notes, labs, VS, and medication list were reviewed. Mood and thought process were stable over the weekend with no events. Met with patient individually today, on the date of discharge. He presented alert and oriented to person, place, time and situation. Speech was loud, normal in rate and tone. Affect was full range. Mood was "good." He had no complaints. He reported 0/10 anxiety (10 being the worst) and 0/10 depression (10 being the worst). He denied feeling hopeless, helpless, worthless or guilty. He was future oriented to resume work and attend [employer]. He reported his sleep and appetite were good. He denied passive and active suicidal ideation, plans and intent. He denied homicidal ideation. He stated and also believed he will not harm himself or others. He identified protective factors of "my mom" and "my sister." Substance abuse counseling was provided to patient on the impact of cannabis use on his mental and physical health. Patient verbalized understanding of education and expressed a desire to stop use. He expressed feeling that IOP would be supportive in helping him obtain this goal. Thought process was organized and goal-directed. He denied auditory and visual hallucinations. There was no evidence of manic symptoms, delusions or paranoia. Thought content was appropriate. Cognition was grossly intact. He reported tolerating medication well and denied untoward medication effects. He reported feeling ready and safe for discharge. P: 1. Discharge today into the care of his mother. 2. F/u with [facility] intake on 07/18/16 at 9:30AM. 3. Patient was strongly advised to abstain from cannabis. 4. Discharge prescription was printed, reviewed, and provided to patient on discharge. 5. Patient was offered information on PCPs in local area. He declined information and stated he would f/u with his family PCP. Patient was advised to f/u regarding elevated BP. 6. In the event of an emergency, call 911/go to nearest emergency department. Patient verbalized understanding of all instruction.
[2016-07-16] MEDS ORDERED: OLANZAPINE5 M2 PO (10:51)
--- NOTE | 2016-07-16 10:56 | NUR ---
will be discharged today to [facility] with follow up at [facility]. Mood is stable, full range of affect. Denied thoughts of self harm when asked. given education on brief psychotic d/o.
--- NOTE | 2016-07-16 11:06 | DISCHARGE SUMMARY REPORT-PSYCH ---
Visit Information Visit Dates/Diagnosis' Admission Date: 07/10/16 Discharge Date: 07/16/16 Reason for Admission: New onset psychosis Psy Discharge Primary Diag: Unspecified psychosis Psy Discharge Secondary Diag: Cannabis use disorder, severe; R/O Bipolar disorder with psychotic features; R/O Unspecified mood disorder with psychotic features; R/O Schizoaffective disorder; R/O Substance-induced psychosis; R/O Cocaine use disorder Hospital Course Significant Lab Findings: Lab Urine Cannabis Screen > 80.00 NG/ML H 07/10/16 1432 07/10/16 EKG: Sinus rhythm with rate of 59. SD: 164; QRSD: 96; QT: 436; QTc: 432; P: 31; QRS: 89; T: 37. Normal EKG confirmed by special police Dr. Marv Vizcarra. Course Complications: None. Consultations: The patient was seen for admission history and physical by Dr. Manool Chacon. Please see his note for additional information. Allergies: Coded Allergies: No Known Allergies (07/11/16) Hospital Course/TX Response: The patient was monitored on the unit for safety, mood and psychosis. He participated in multimodal treatments on the unit. Zyprexa 5mg three times a day was started for paranoia/ delusions and mood stability. Dosing was later changed to Zyprexa 5mg every morning and 10mg at bedtime. The patient refused trials of mood stabilizing agents requiring routine labwork including [place], depakote or tegretol. The patient tolerated Zyprexa well and denied untoward medication effects. During the hospital course, the patient's mood and affect improved. Paranoia and delusions remitted. The patient consistently denied suicidal ideation. A family meeting was held with the patient, his mother, Lupe MarkhamLUIS ENRIQUE and this health underwriter.The patient's treatment progress to date, medication regimen, history of psychiatric symptoms and substance abuse, and discharge planning were reviewed. The patient's mother expressed no safety concerns related to the patient's discharge or aftercare plan. The patient and patient's mother were in favor of aftercare at [facility] intensive outpatient psychiatry. On the date of discharge, 07/16/16, the patient presented alert and oriented to person, place, time and situation. Speech was loud, normal in rate and tone. Affect was full range. Mood was "good." He had no complaints. He reported 0/10 anxiety (10 being the worst) and 0/10 depression (10 being the worst). He denied feeling hopeless, helpless, worthless or guilty. He was future oriented to resume work and attend IOP. He reported his sleep and appetite were good. He denied passive and active suicidal ideation, plans and intent. He denied homicidal ideation. He stated and also believed he will not harm himself or others. He identified protective factors of "my mom" and "my sister." Substance abuse counseling was provided to patient on the impact of cannabis use on his mental and physical health. Patient verbalized understanding of education and expressed a desire to stop use. He expressed feeling that IOP would be supportive in helping him obtain this goal. Thought process was organized and goal-directed. He denied auditory and visual hallucinations. There was no evidence of manic symptoms, delusions or paranoia. Thought content was appropriate. Cognition was grossly intact. He reported tolerating medication well and denied untoward medication effects. He reported feeling ready and safe for discharge. Discharge HBIPS - Tobacco Use Treatment Offered Post DC Medications Offered: Refused Tob Medication Tx Post DC Tobacco Treatment Plan: Refused Tobcco Tx Pgm - EtOH/Drug Use D/O Treatment Offered Post DC Medications Offered: Med Not Indicated for D/O Post DC EtOH/SubAbuse TX Plan: [facility] SubAbuse/Dual IOP Program Appt Date: 07/18/16 Program Appt Time: 0930 Metabolic Screening - Screen if on a Neuroleptic Medication - Metabolic screening should include: - Blood Pressure, BMI, Glucose or Hgb A1c, & a - Lipid profile from within the past 365 days. Metabolic Screening () Not Applicable, patient not on a neuroleptic. OR ([X]) Patient on a neuroleptic(s) . Enter below results for Glucose or Hemoglobin A1C, and lipid panel if obtained during the last 365 days. BMI: 27.600 Blood Pressure: 144/78 Laboratory Results (If applicable): Lab Cholesterol 116 MG/DL 07/10/16 1115 Cholesterol/HDL Ratio 2 % 07/10/16 1115 Glucose 100 mg/dL H 07/10/16 1115 HDL Cholesterol 49 mg/dL 07/10/16 1115 LDL Cholesterol, Calc 56 mg/dL L 07/10/16 1115 Triglycerides 58 mg/dL 07/10/16 1115 Discharge Instructions General Discharge Information Discharge Medications: Discharge Medications- (Dose, route, freq, indication): HOME MEDICATION LIST START taking these NEW Home Medications: Olanzapine Dose: ORAL, SEE INSTRUCTIONS Qty: 42 Printed (Olanzapine) 5 MG 15 Milligram for mood stability/clear Refills: 0 TABLET thoughts Take 1 tab (5mg) by mouth every morning and 2 tabs (10mg) at bedtime. Last Taken:07/16/16 Time:8am Multiple Neuroleptics: ([X]) Not Applicable OR Document below three failed attempts at monotherapy, or a plan to taper to monotherapy, or augmentation of Clozapine. () Patient's Diet: Regular. Patient's Activity: No restrictions. DC Disposition: Patient to return home to parents. Recommendations: Patient was advised to please take his medication as prescribed. He was advised to abstain from all substances. He was advised to attend scheduled outpatient appointment (see in referral section below). He was offered information on primary care providers in his town of residence and was advised to follow-up for elevated BP. He declined this information and stated he would follow-up with his family's PCP. He was advised that in the event of an emergency to call 911/go to nearest emergency department. Patient verbalized understanding of all information. Referred To: Provider Referral Service Date: 07/18/16 Referred To: [facility] Notes: [address] [place] [address] (t)[phone] *IOP intake scheduled on 07/18/16 at 9:30AM. Copies To: [facility]
== END 2016-07-16 11:40 | DRG 751 ==
LOC: ERH 11:14 → ENPENDDIS 16:47 → ERHI 16:47 → CP SOUTH 16:47 → EDBEDREQ 17:03 → CP SOUTH 17:47
PROVIDERS: Emergency Medicine; ADMIT Psychiatry & Neurology Addiction Medicine
DX: F29 Unspecified psychosis not due to a substance or known physiological condition (principal); F12.20 Cannabis dependence, uncomplicated
CPT/HCPCS: 80307; 81001; 82436; 93005; 93010; G0480; J3101